=== PATIENT | male | born 1960 | race Caucasian/White ===

== ENCOUNTER 2020-09-29 06:56 | Emergency (ER) | payer OTHER, SELFPAY ==
--- NOTE | 2020-09-29 07:10 | ED.LOWEXIN ---
HPI - Extremity Injury (Lower) General Chief Complaint: Extremity Injury, Lower Stated Complaint: think I broke right foot Time Seen by Provider: 09/29/20 07:03 Source: patient and family Mode of arrival: Wheelchair Limitations: no limitations History of Present Illness HPI Narrative: 60-year-old male smoker with noncontributory medical history presents with his in the chief complaint of an injury to his right foot yesterday. He stepped awkwardly off a ladder and fell a few feet injuring his right foot. He is unable to weight bear due to the pain. He denies any numbness, tingling or weakness. He denies any cuts or lacerations. He has no knee, hip or back pain. He did not fall and strike his head denies any neck injury. MD complaint: foot injury Onset (ago): hour(s) Type of Injury: blunt Place: street/outdoors Severity: moderate Relieving factors: nothing Exacerbating factors: weight bearing, movement and palpation Context: fall Associated symptoms: swelling and unable to bear weight Other symptoms: none Treatments prior to arrival: cold therapy Related Data Previous Rx's Medication Instructions Recorded ondansetron 4 mg PO TID-QID PRN #10 tab 09/29/20 oxycodone 5 mg PO Q4-6H PRN #30 tab 09/29/20 Allergies Allergy/AdvReac Type Severity Reaction Status Date / Time Penicillin Allergy Unknown Uncoded 08/30/17 11:54 Review of Systems Constitutional Constitutional: Denies chills, Denies fatigue, Denies fever(s), Denies frequent falls, Denies lethargy and Denies weakness Eyes Eyes: Denies change in vision, Denies eye discharge, Denies irritation and Denies loss of vision ENT Ears, Nose, Mouth, and Throat: Denies change in voice, Denies dizziness, Denies neck pain, Denies sore throat and Denies throat swelling Cardiovascular Cardiovascular: Denies chest pain, Denies irregular heart rhythm, Denies lightheadedness, Denies palpitations, Denies dyspnea, Denies dyspnea on exertion and Denies orthopnea Respiratory Respiratory: Denies cough, Denies dyspnea, Denies dyspnea on exertion and Denies wheezing Gastrointestinal Gastrointestinal: Denies abdominal pain, Denies change in bowel habits, Denies diarrhea, Denies nausea and Denies vomiting Musculoskeletal Musculoskeletal: Reports arthralgias, Reports joint swelling, Denies neck pain and Denies numbness Integumentary/Breasts Skin/Breast: Denies pruritus, Denies erythema, Denies rash and Denies wounds Neurologic Neurologic: Denies behavioral changes, Denies confusion, Denies dizziness, Denies frequent falls, Denies loss of vision, Denies numbness and Denies weakness Psychiatric Psychiatric: Denies anxiety, Denies behavioral changes, Denies confusion, Denies depression, Denies homicidal ideation and Denies suicidal ideation Endocrine Endocrine: Denies fatigue, Denies flushing and Denies palpitations Hematologic/Lymphatic Hematologic/Lymphatic: Denies easy bruising Allergic/Immunologic Allergic/Immunologic: Denies urticaria, Denies throat swelling and Denies wheezing Patient History Smoking Status: Current every day smoker alcohol intake frequency: 0-2 drinks per day Substance Use Type: does not use Exam Narrative Exam Narrative: GENERAL: [60] year old patient appears stated age. Well-nourished, well-developed patient, in mild distress. GCS 15 HEAD: Atraumatic. Normocephalic. EYES: Pupils equal round and reactive. Extraocular motions intact. No scleral icterus. No injection or drainage. ENT: Nose without bleeding, purulent drainage. Throat without erythema, tonsillar hypertrophy or exudate. Airway patent. NECK: Trachea midline. Non tender CARDIOVASCULAR: Regular rate and rhythm without murmurs, gallops, or rubs. RESPIRATORY: Clear to auscultation. Breath sounds equal bilaterally. No wheezes, rales, or rhonchi. GASTROINTESTINAL: Abdomen soft, non-tender, nondistended. EXTREMITIES: Right foot with significant swelling, ecchymosis and tenderness to palpation. Cap refill intact, closed, isolated and neurovascularly intact. Compartments soft No pain in ankle, tib-fib, knee, hip or on palpation of lower back. BACK: Nontender without deformity or crepitance. No flank tenderness. NEURO: AOx3. SKIN: No rash or erythema of visible areas Initial Vital Signs Initial Vital Signs: Vital Signs Temperature 97.6 F 09/29/20 07:20 Pulse Rate 63 09/29/20 07:20 Respiratory Rate 18 09/29/20 07:20 Blood Pressure 146/80 H 09/29/20 07:20 Pulse Oximetry 97 09/29/20 07:20 Procedures Orthopedic Splinting/Casting Injury #1: Side: right Lower Extremity Injury Location: foot Lower Extremity Immobilizer: posterior splint and stirrup splint Other Orthopedic Equipment: crutches Post splinting neuro exam: intact Post splinting vascular exam: intact Placed by: Nursing Course Orders Ordered: Discontinued Medications Oxycodone/Acetaminophen (Oxycodone/Acetaminophen 5/325 Tablet) 1 tab PO NOW ONE Stop: 09/29/20 08:53 Last Admin: 09/29/20 09:01 Dose: 1 tab Documented by: NOÉ Cruz Consultation #1: Case discussed with on-call orthopedist he recommends posterior mold, stirrup, nonweightbearing, pain control and follow-up. MDM - Extremity Injury (Lower) Imaging Data Extremity x-ray #1: Radiologist's Impression: [address] [id number] ReportSigned Patient: Celia Coates#: [id number]: 1960Acct:[id number]/Sex: 60 / MDate of Service: 09/29/20Loc: EDAccession Number: [id number] Procedure: XR foot RT min 3V Ordering Provider: Edenilson Santamaria D.O. PROCEDURE: XR FOOT RT MIN 3V INDICATIONS: fall with foot pain TECHNIQUE: 3 views of the foot were acquired. COMPARISON: None. FINDINGS: Cortical irregularity involving the navicular however seen on one view only No suspicious bony lesions. Scattered degenerative subchondral sclerosis and spurring. Chronic os peroneum incidentally noted. Soft tissues: Diffuse forefoot soft tissue swelling. IMPRESSION: Cortical irregularity of navicular however seen on one view only. Please correlate to point tenderness and if there is persistent high suspicion of fracture in this location further evaluation with CT or MRI could be performed. Dictated by: Kamari Delong M.D. on 09/29/2020 at 8:49 Approved by: Kamari Delong M.D. on 09/29/2020 at 8:51 CT LE: Radiologist's Impression: [address] [id number] Scan ReportSigned Patient: Celia Coates#: [id number]: 1960Acct:[id number]/Sex: 60 / MDate of Service: 09/29/20Loc: EDAccession Number: [id number] Procedure: CT LE RT wo con Ordering Provider: Edenilson Santamaria D.O. PROCEDURE: CT LE RT WO CON INDICATIONS: significant injury to R foot from fall, swelling, pain, ecch TECHNIQUE: Noncontrast 1-1.5 mm axial sections acquired from above the tibiotalar joint to the bottom of the calcaneus, with coronal and sagittal reformats. COMPARISON: [facility], CR, XR FOOT RT MIN 3V, 09/29/2020, 7:22. FINDINGS: Image quality: Excellent. Bones: As seen on radiograph, there is acute minimally displaced fracture involving dorsal and medial aspect of distal navicular bone adjacent to navicular cuneiform joint. There is up to 1.5 mm diastasis at fracture site. There is also nondisplaced intra-articular fracture involving plantar and medial aspect of 2nd metatarsal base. Slightly comminuted and minimally displaced intra-articular fracture involving plantar and medial aspect of 3rd metatarsal base is seen with medial displacement of fractured fragments and up to 3 mm diastasis at fracture site. No other fracture or dislocation is seen. No suspicious intraosseous lesion. Soft tissues: There is soft tissue swelling over dorsal aspect of midfoot particularly over metatarsal base fracture sites. No full-thickness tendon rupture. Plantar aponeurosis is intact. Achilles tendon is intact. Extensor, flexor, and peroneus tendons show no full-thickness rupture. IMPRESSION: 1. Acute minimally displaced fracture involving dorsal and medial aspect of distal navicular bone. 2. Nondisplaced intra-articular fracture involving plantar and medial aspect of 2nd metatarsal base. 3. Slightly comminuted and slightly displaced intra-articular fracture involving plantar and medial aspect of 3rd metatarsal base. 4. Dorsal midfoot soft tissue swelling. No gross full-thickness tendon rupture. Dictated by: Judd Joe M.D. on 09/29/2020 at 9:21 Approved by: Judd Joe M.D. on 09/29/2020 at 9:35 MDM Narrative Medical decision making narrative: Patient with significant worsening of right foot pain after traumatic injury yesterday has physical exam findings that suspect more injury than that which is noted on the x-ray hence decision to perform CT scan. Compartments were soft, cap refill and sensation intact and therefore compartment syndrome considered unlikely. Lisfranc injury considered but thought unlikely given lack of supporting findings on imaging. Patient splinted, encouraged to employed nonweightbearing, given strict return precautions and questions answered to his apparent satisfaction Discharge Plan Departure Patient Disposition: Home Clinical Impression: Foot, fracture, navicular Qualifiers: Encounter type: initial encounter Fracture type: closed Fracture alignment: nondisplaced Laterality: right Qualified Code(s): S92.254A - Nondisplaced fracture of navicular [scaphoid] of right foot, initial encounter for closed fracture Closed fracture of third metatarsal bone Qualifiers: Encounter type: initial encounter Fracture alignment: nondisplaced Laterality: right Qualified Code(s): S92.334A - Nondisplaced fracture of third metatarsal bone, right foot, initial encounter for closed fracture Closed fracture of 2nd metatarsal Qualifiers: Encounter type: initial encounter Fracture alignment: nondisplaced Laterality: right Qualified Code(s): S92.324A - Nondisplaced fracture of second metatarsal bone, right foot, initial encounter for closed fracture Activity Restrictions/Additional Instructions: *You have been diagnosed with [multiple fractures of right foot.] *What to do: *Please continue to take your regular medications as directed. [x] New medication prescriptions sent to your pharmacy: [[facility] in [place] ] [ ] New medication written as a paper prescription [ ] No new medications given *Please follow up with your Dr. Louise at [facility], call later today for an appointment. Let them know Dr. Santamaria (Emergency) spoke with Dr. Kelley (Orthopedics) and he wants her to see you for your fractures. *Return to Emergency Department if you should have any new, worsening or concerning symptoms, such as [fever greater than 101 F, shaking chills, worsening pain, persistent vomiting, numbness, tingling or other bothersome symptoms] NO WEIGHT BEARING UNTIL FOLLOW UP Splint Care: Keep splint clean and dry. Elevated affected body part to decrease swelling. OK to use ice pack on the affected body part. Use for 15-20 minutes each time, for 5-6x per day. If you develop worsening pain, numbness, tingling, discoloration of the affected body part, loosen the splint by loosening the ALLY wrap, and either see your doctor for an urgent re-assessment, or return to the Emergency Department. Return to the Emergency Department for any new or worsening symptoms. You have been prescribed narcotic medications. While on these medications you cannot drive or operate heavy machinery. Additionally you cannot sign legal documents or perform any duties such as this. 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 Please understand that we cannot provide further refills of narcotics or controlled substances through the ED and your pain management will need to be through your Primary Care Provider Prescriptions: New oxycodone 5 mg tablet 5 mg PO Q4-6H PRN (Reason: pain) Qty: 30 RF: 0 ondansetron 4 mg tablet,disintegrating 4 mg PO TID-QID PRN (Reason: nausea and vomiting) Qty: 10 RF: 0 Referrals: Yenifer Louise MD [Physician] -
--- NOTE | 2020-09-29 07:17 | DI.RAD.S_ITS ---
PROCEDURE: XR FOOT RT MIN 3V INDICATIONS: fall with foot pain TECHNIQUE: 3 views of the foot were acquired. COMPARISON: None. FINDINGS: Cortical irregularity involving the navicular however seen on one view only No suspicious bony lesions. Scattered degenerative subchondral sclerosis and spurring. Chronic os peroneum incidentally noted. Soft tissues: Diffuse forefoot soft tissue swelling. IMPRESSION: Cortical irregularity of navicular however seen on one view only. Please correlate to point tenderness and if there is persistent high suspicion of fracture in this location further evaluation with CT or MRI could be performed. Dictated by: Kamari Delong M.D. on 09/29/2020 at 8:49 Approved by: Kamari Delong M.D. on 09/29/2020 at 8:51
[2020-09-29 07:20] VITALS: BP 146/80; PULSE 63; RESP 18; TEMP 36.4; O2SAT 97; BMI 28.8
--- NOTE | 2020-09-29 08:52 | DI.CT.S_ITS ---
PROCEDURE: CT LE RT WO CON INDICATIONS: significant injury to R foot from fall, swelling, pain, ecch TECHNIQUE: Noncontrast 1-1.5 mm axial sections acquired from above the tibiotalar joint to the bottom of the calcaneus, with coronal and sagittal reformats. COMPARISON: [facility], CR, XR FOOT RT MIN 3V, 09/29/2020, 7:22. FINDINGS: Image quality: Excellent. Bones: As seen on radiograph, there is acute minimally displaced fracture involving dorsal and medial aspect of distal navicular bone adjacent to navicular cuneiform joint. There is up to 1.5 mm diastasis at fracture site. There is also nondisplaced intra-articular fracture involving plantar and medial aspect of 2nd metatarsal base. Slightly comminuted and minimally displaced intra-articular fracture involving plantar and medial aspect of 3rd metatarsal base is seen with medial displacement of fractured fragments and up to 3 mm diastasis at fracture site. No other fracture or dislocation is seen. No suspicious intraosseous lesion. Soft tissues: There is soft tissue swelling over dorsal aspect of midfoot particularly over metatarsal base fracture sites. No full-thickness tendon rupture. Plantar aponeurosis is intact. Achilles tendon is intact. Extensor, flexor, and peroneus tendons show no full-thickness rupture. IMPRESSION: 1. Acute minimally displaced fracture involving dorsal and medial aspect of distal navicular bone. 2. Nondisplaced intra-articular fracture involving plantar and medial aspect of 2nd metatarsal base. 3. Slightly comminuted and slightly displaced intra-articular fracture involving plantar and medial aspect of 3rd metatarsal base. 4. Dorsal midfoot soft tissue swelling. No gross full-thickness tendon rupture. Dictated by: Judd Joe M.D. on 09/29/2020 at 9:21 Approved by: Judd Joe M.D. on 09/29/2020 at 9:35
[2020-09-29] MEDS: OXYCODONE/ACETAMINOPHEN 5/325 TABLET 1 TAB PO (09:01)
[2020-09-29 10:56] VITALS: BP 126/83
== END 2020-09-29 11:06 | disposition home or self-care (01) ==
PROVIDERS: Emergency Provider Emergency Medicine
DX: S92.254A Nondisplaced fracture of navicular [scaphoid] of right foot, initial encounter for closed fracture (principal); S92.334A Nondisplaced fracture of third metatarsal bone, right foot, initial encounter for closed fracture; S92.324A Nondisplaced fracture of second metatarsal bone, right foot, initial encounter for closed fracture; W19.XXXA Unspecified fall, initial encounter
CPT/HCPCS: 73630; 73700; 99284